=== PATIENT | female | born 1930 | race Caucasian/White ===

== ENCOUNTER 2016-10-18 11:10 | Emergency (ER) | payer MEDICARE, OTHER ==
[~2016-10-18] VITALS: Ht 157.5 cm; Wt 54.0 kg
--- NOTE | 2016-10-18 11:17 | NUR ---
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 TETANUS SHOT UP TO DATE PER PT. APPLIED PRESSURE ON WOUND. AWAITING MD ORDER
--- NOTE | 2016-10-18 11:25 | NUR ---
RADIOLOGY AT BEDSIDE FOR R FOREARM XRAY.
[2016-10-18] MEDS ORDERED: AMOX/CLAVULANATE 875 MG TABLET PO ONE (11:30)
[2016-10-18] MEDS ORDERED: AMOX/CLAVULANATE 875 MG TABLET ONE (11:35)
--- NOTE | 2016-10-18 11:44 | NUR ---
TECH AT BEDSIDE FOR WOUND CARE.
[2016-10-18] MEDS ORDERED: TDAP [DIPH/PERTUSSIS/TET] 0.5 ML VIAL IM ONE ×2 (12:09→12:30)
[2016-10-18 12:25] VITALS: BP 146/87
--- NOTE | 2016-10-18 12:25 | NUR ---
Patient discharged to home in stable condition. Written and verbal after care instructions given. Patient verbalizes understanding of instruction.
== END 2016-10-18 12:26 | disposition home or self-care (01) ==
LOC: ER 11:15
DX: S51.811A Laceration without foreign body of right forearm, initial encounter (principal); I10 Essential (primary) hypertension; K85.90 Acute pancreatitis without necrosis or infection, unspecified; Z85.850 Personal history of malignant neoplasm of thyroid; Z23 Encounter for immunization; W54.0XXA Bitten by dog, initial encounter; Y92.89 Other specified places as the place of occurrence of the external cause; Y93.89 Activity, other specified; Y99.8 Other external cause status
CPT/HCPCS: 73090-TC; 90715; A4606; A6402; A6403; Z7610

== ENCOUNTER 2017-11-07 18:23 | Emergency (ER) | payer MEDICARE, OTHER ==
[~2017-11-07] VITALS: Ht 152.4 cm; Wt 61.2 kg
[2017-11-07 18:37] VITALS: BP 139/85
--- NOTE | 2017-11-07 19:25 | NUR ---
REPORT RECEIVED FROM SILVIO RYAN FOR [facility].
[2017-11-07 19:26] LABS: BILIRUBIN,URINE LARGE (NEGATIVE); BLOOD, URINE Large Ery/uL (NEGATIVE); COLOR,URINE Brown (YELLOW); KETONES,URINE 15 (NEGATIVE); LEUKOCYTE ESTERASE ,URINE Large (NEGATIVE); NITRITE, URINE Negative (NEGATIVE); PROTEIN,URINE >=300 mg/dl (NEGATIVE); UGLUCOSE Negative (NEGATIVE)
[2017-11-07 19:28] LABS: APPEARANCE,URINE CLOUDY (CLEAR)
[2017-11-07 19:30] LABS: BACTERIA,URINE 1+ /HPF (None Seen); RBC,URINE TOO NUMEROUS TO COUN /HPF (0-2); WBC,URINE 21-50 /HPF (0-3)
[2017-11-07 19:31] LABS: SQUAMOUS EPITHELIAL CELL,UR Few /HPF (None Seen)
[2017-11-07] MEDS ORDERED: CEPHALEXIN MONOHYDRATE 500 MG CAPSULE PO ONE ×2 (19:50→20:00)
--- NOTE | 2017-11-07 19:53 | NUR ---
PT. VERBALIZED UNDERSTANDING OF AFTERCARE INSTRUCTIONS.Patient discharged to home in stable condition. Written and verbal after care instructions given. Patient verbalizes understanding of instruction.
== END 2017-11-07 19:54 | disposition home or self-care (01) ==
LOC: ER 18:27
DX: N39.0 Urinary tract infection, site not specified (principal); I10 Essential (primary) hypertension; I49.9 Cardiac arrhythmia, unspecified; Z85.850 Personal history of malignant neoplasm of thyroid; Z90.89 Acquired absence of other organs
CPT/HCPCS: 87077; 81001; 87086; 87186; 99285; A4606; 81000-TC; Z7610

== ENCOUNTER 2019-04-06 19:56 | Emergency (ER) | payer MEDICARE, OTHER ==
[~2019-04-06] VITALS: Ht 162.6 cm; Wt 50.8 kg
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
[2019-04-06] MEDS ORDERED: LIDOCAINE 1%-EPI 1:100,000 50 ML VIAL IJ ONE (21:00)
--- NOTE | 2019-04-06 21:04 | NUR ---
pt taken to ct via priscila
--- NOTE | 2019-04-06 21:12 | NUR ---
RETURNED FROM CT.
--- NOTE | 2019-04-06 21:23 | NUR ---
PATIENT AMBULATED W/ STEADY GAIT TO THE RESTROOM.
[2019-04-06] MEDS ORDERED: LIDOCAINE HCL/MPF 1% 30 ML VIAL IJ ONE (22:36)
--- NOTE | 2019-04-06 22:37 | NUR ---
AT BEDSIDE FOR STAPLING PROCEDURE.
[2019-04-06 23:05] VITALS: BP 139/82
--- NOTE | 2019-04-06 23:05 | NUR ---
Patient discharged to home in stable condition. Written and verbal after care instructions given. Patient verbalizes understanding of instruction.
== END 2019-04-06 23:11 | disposition home or self-care (01) ==
LOC: ER 20:00
DX: S01.01XA Laceration without foreign body of scalp, initial encounter (principal); S09.8XXA Other specified injuries of head, initial encounter; I10 Essential (primary) hypertension; Z85.850 Personal history of malignant neoplasm of thyroid; W18.39XA Other fall on same level, initial encounter; Y93.89 Activity, other specified; Y92.89 Other specified places as the place of occurrence of the external cause; Y99.8 Other external cause status
CPT/HCPCS: 12001; 70450; 71045; 72125; 99284; A6403 ×2; J3490 ×2